=== PATIENT | female | born 2000 | race Caucasian/White ===

== ENCOUNTER 2022-04-02 08:47 | Emergency (ER) | payer OTHER, BC, SELFPAY ==
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
[2022-04-02 11:06] VITALS: BP 122/65; PULSE 63; RESP 18; TEMP 36.5; O2SAT 100
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
[2022-04-02] MEDS: ACETAMINOPHEN 500 MG TABLET 1000 MG PO (12:16)
[2022-04-02 14:34] VITALS: BP 127/76; PULSE 62; RESP 16; O2SAT 99
== END 2022-04-02 14:36 | disposition home or self-care (01) ==
PROVIDERS: Emergency Provider Physician Assistant
DX: S12.191A Other nondisplaced fracture of second cervical vertebra, initial encounter for closed fracture (principal); S12.391A Other nondisplaced fracture of fourth cervical vertebra, initial encounter for closed fracture; F17.290 Nicotine dependence, other tobacco product, uncomplicated; V49.50XA Passenger injured in collision with unspecified motor vehicles in traffic accident, initial encounter
CPT/HCPCS: 70450; 72125; 72128; 72131; 81025; 99284; A9270; L0140

== ENCOUNTER 2023-01-21 18:17 | Emergency (ER) | payer OTHER, SELFPAY ==
--- NOTE | 2023-01-21 18:33 | ED.WOUNDLAC ---
HPI - Wound/Laceration General Chief Complaint: Wound/Laceration Stated Complaint: Cut on left wrist Time Seen by Provider: 01/21/23 18:33 Source: patient Mode of arrival: ambulatory Limitations: no limitations History of Present Illness HPI narrative: Patient is a 22-year-old female that presents with laceration to left forearm. 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 Patient unsure of last tetanus shot. Denies any numbness, tingling weakness to hand. Denies any active bleeding. Related Data Allergies Allergy/AdvReac Type Severity Reaction Status Date / Time No Known Allergies Allergy Mild Verified 01/21/23 19:20 Review of Systems Review of Systems: All systems reviewed & are unremarkable except as noted in HPI and below Constitutional: Constitutional: Denies body ache(s), Denies chills, Denies fatigue, Denies fever(s), Denies headache(s), Denies malaise and Denies weakness Eyes: Eyes: Denies blurry vision, Denies irritation and Denies loss of vision ENT: Denies otalgia, Denies headache(s), Denies nasal discharge, Denies sinus pain and Denies sore throat Cardiovascular: Cardiovascular: Denies chest pain, Denies irregular heart rhythm and Denies dyspnea Respiratory: Respiratory: Denies dyspnea Gastrointestinal: Gastrointestinal: Denies abdominal pain, Denies melena, Denies hematochezia, Denies diarrhea, Denies nausea and Denies vomiting Musculoskeletal: Musculoskeletal: Denies back pain, Denies myalgias and Denies arthralgias Integumentary/Breasts: Skin/Breast: Denies pruritus, Denies rash and Reports wounds Neurologic: Denies headache(s), Denies loss of vision and Denies weakness Psychiatric: Psychiatric: Reports no additional psychiatric complaints Endocrine: Endocrine: Denies fatigue PMFSH Past Medical History Medical History History of chlamydia infection (~04/19/21) Social History Social History Smoking status: Current some day smoker Tobacco type: e-cigarettes/vaping Alcohol intake: current Alcohol use details: socially Substance use: never Current Housing: Decline to Answer Concerned About Future Housing: Decline to Answer Difficulty Paying Gas/Electric Bills: Decline to Answer Difficulty Paying for Meds: Decline to Answer Currently Unemployed: Decline to Answer Education: Decline to Answer Difficulty w/ Childcare or Family Care: Decline to Answer Living arrangements: with family Occupation/Education: occupation 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 There is no relevant family history pertinent to the presenting complaint. Exam Const: General: cooperative, healthy appearing, comfortable, no acute distress and well nourished Nutritional Appearance: well nourished Orientation/consciousness: patient oriented x3 Limitations: no limitations HENMT: Head: normal to inspection, normocephalic and atraumatic Ears: hearing grossly normal bilaterally and external ears normal Face/Nose/Sinus: Normal external nose present, normal facial exam and face symmetric Face and sinus: normal facial exam and face symmetric Mouth: Yes lip normal Eyes: General: appearance normal, both eyes and all related structures Alignment and Position: alignment normal and position normal Periorbital: periorbital findings normal Eyelids: eyelids normal Pupils: Equal, round and reactive pupils present EOM: EOMs intact bilaterally Neck: Neck: normal visual inspection, full ROM and supple Chest: Chest palpation & inspection: normal inspection of the chest Resp: Effort & Inspection: normal respiratory effor
[2023-01-21 19:21] VITALS: BP 127/66; PULSE 65; RESP 16; TEMP 36.4; O2SAT 100
[2023-01-21] MEDS: TETANUS,DIPHTHERIA,AC PERTUSSIS ADULT (0.5 ML) BOOSTRIX IM (20:02)
== END 2023-01-21 20:05 | disposition home or self-care (01) ==
PROVIDERS: Emergency Provider Nurse Practitioner Family
DX: S51.812A Laceration without foreign body of left forearm, initial encounter (principal); W45.8XXA Other foreign body or object entering through skin, initial encounter; Z23 Encounter for immunization; F17.290 Nicotine dependence, other tobacco product, uncomplicated
CPT/HCPCS: 12002; 90471; 90715; 99212; G0463

== ENCOUNTER 2023-11-12 21:56 | Emergency (ER) | payer OTHER, SELFPAY ==
[2023-11-12 21:57] VITALS: BP 156/94; PULSE 98; RESP 16; TEMP 36.8; O2SAT 100
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
== END 2023-11-12 22:52 | disposition home or self-care (01) ==
LOC: ANHED 22:46
PROVIDERS: Emergency Provider Emergency Medicine
DX: Z04.89 Encounter for examination and observation for other specified reasons (principal); F17.290 Nicotine dependence, other tobacco product, uncomplicated
CPT/HCPCS: 99281

== ENCOUNTER 2024-05-27 06:42 | Emergency (ER) | payer OTHER, SELFPAY ==
--- NOTE | ~2024-05-27 | XR_ITS ---
EXAMINATION: XR chest 2V 05/27/2024 07:47 INDICATION: Shortness of breath PROCEDURE: 2 view chest COMPARISON: No prior studies for comparison. FINDINGS: The lungs are clear. The cardiomediastinal silhouette is within normal limits. There are no pleural effusions. There is no pneumothorax suspected. IMPRESSION: 1: NO ACUTE CARDIOPULMONARY DISEASE. Reviewed, dictated and finalized at location [facility]. RVISOR DYER
[2024-05-27 07:21] VITALS: BP 94/85; PULSE 65; RESP 16; TEMP 36.6; O2SAT 100
[2024-05-27 07:31] VITALS: BP 106/56; PULSE 54; RESP 15; TEMP 36.4; O2SAT 100
--- NOTE | 2024-05-27 07:39 | ED.GENADULT ---
HPI - General Adult General Chief complaint: Shortness of Breath/Dyspnea Stated complaint: shortness of breath Time Seen by Provider: 05/27/24 07:05 History of Present Illness HPI narrative: 24-year-old female presented to the emergency department for evaluation for difficulty taking a deep breath for the last 2 weeks and then some right-sided chest pain that occurred over the last few days. Patient does take control. Patient denies any prior history of PE or DVT patient denies any prior history of cancer. Related Data Allergies Allergy/AdvReac Type Severity Reaction Status Date / Time No Known Allergies Allergy Mild Verified 02/19/24 15:50 Review of Systems Review of Systems: All systems reviewed & are unremarkable except as noted in HPI and below PMFSH Past Medical History Medical History History of chlamydia infection (~04/19/21) Social History Social History (Updated 02/19/24 @ 15:51 by Luis Antonio Espinoza MA) Smoking status: Current some day smoker Tobacco type: e-cigarettes/vaping Alcohol intake: current Alcohol use details: socially Substance use: never Substance use type: does not use Do You Feel Safe in your Home?: Yes Lack of Transportation: No Lack of Food: Never True Current Housing: I Have Housing Concerned About Future Housing: No Difficulty Paying Gas/Electric Bills: No Difficulty Paying for Meds: No Currently Unemployed: No Education: Associate Degree Difficulty w/ Childcare or Family Care: No Living arrangements: with family Occupation/Education: occupation 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 HEAD: normocephalic, atraumatic. EYES: PERRLA/EOMI, conjunctivae clear. NOSE: Normal no drainage EARS:TMS clear with good light reflex. THROAT: Pharynx clear, no exudate. NECK: Supple. No adenopathy, no masses. RESPIRATORY: Airway patent, respirations nonlabored. Clear to auscultation bilaterally, no rales, rhonchi, wheezing. CARDIOVASCULAR: Regular rate and rhythm without murmurs rubs or gallops. ABDOMINAL: Soft, nontender, nondistended, normal bowel sounds MUSCULOSKELETAL: Moves all extremities. Strength/ROM intact, No edema, No calf tenderness. NEURO: Alert. Cranial nerves II through XII intact. Grossly intact SKIN: Warm, dry. Normal Color Course Vital Signs Vital signs: Vital Signs Temperature 97.9 F 05/27/24 07:21 Pulse Rate 65 05/27/24 07:21 Respiratory Rate 16 05/27/24 07:21 Blood Pressure 94/85 L 05/27/24 07:21 Pulse Oximetry 100 05/27/24 07:21 Oxygen Delivery Room Air 05/27/24 07:21 Temperature 97.9 F 05/27/24 09:30 Pulse Rate 72 05/27/24 10:32 Respiratory Rate 16 05/27/24 10:32 Blood Pressure 106/60 05/27/24 09:30 Pulse Oximetry 99 05/27/24 09:30 Oxygen Delivery Room Air 05/27/24 07:24 Medical Decision Making MDM Narrative Medical decision making narrative: 24-year-old female presented to the emergency department for evaluation for right-sided chest pain after shortness of breath for the last week. Patient is afebrile. Patient's D-dimer is not elevated EKG shows sinus bradycardia with no evidence acute STEMI patient was negative for influenza RSV and for COVID and chest x-ray shows no acute cardiopulmonary abnormality. Differential Diagnosis Differential Diagnosis: COVID, RSV, influenza, pulmonary embolism, pneumonia, pneumothorax Vital Signs Vital Signs: Vital Signs Temperature 97.9 F 05/27/24 07:21 Pulse Rate 65 05/27/24 07:21 Respiratory Rate 16 05/27/24 07:21 Blood Pressure 94/85 L 05/27/24 07:21 Pulse Oximetry 100 05/27/24 07:21 Oxygen Delivery Room Air 05/27/24 07:21 Temperature 97.9 F 05/27/24 09:30 Pulse Rate 72 05/27/24 10:32 Respiratory Rate 16 05/27/24 10:32 Blood Pressure 106/60 05/27/24 09:30 Pulse Oximetry 99 05/27/24 09:30 Oxygen Delivery Room Air 05/27/24 07:24 Lab Data Lab results reviewed: Yes I reviewed the patient's lab results. Labs: Lab Results 05/27/24 05/27/24 Range/Units 07:33 07:54 D-Dimer < 0.27 (<0.48) ug/mL Influenza A (RT-PCR) Negative (Negative) Influenza B (RT-PCR) Negative (Negative) RSV (RT-PCR) Negative (Negative) SARS-CoV-2 RNA (RT-PCR) Negative (Negative) Imaging Data Radiologist's impression: Impressions Chest X-Ray 05/27/24 07:48 IMPRESSION: 1: NO ACUTE CARDIOPULMONARY DISEASE. Discharge Plan Discharge Clinical Impression: Shortness of breath Patient Disposition: Home, Self-Care Condition: Stable Instructions: Antibiotic Form, Chest Pain (DC), Pleurisy (DC) Additional Instructions: Scheduled ibuprofen for pain control. Have close follow-up with your primary care physician for additional outpatient cardiac testing. If you have any worsening symptoms then please call or return to the emergency department. Patient Language: Syriac Prescriptions: No Action norgestimate-ethinyl estradiol [Tri-Sprintec (28)] 0.18/0.215/0.25 mg-35 mcg (28) tablet 1 tablet PO DAILY Qty: 84 4RF Follow-up/Referrals: UNKNOWN,DOCTOR [Primary Care Provider] -
[2024-05-27 08:15] LABS: Influenza A QL RT-PCR Negative (Negative); Influenza B QL RT-PCR Negative (Negative); RSV RNA, RT-PCR Negative (Negative); SARS-CoV-2 RNA PCR Negative (Negative)
[2024-05-27 08:30] VITALS: BP 110/58; PULSE 52; RESP 20; TEMP 36.6; O2SAT 99
[2024-05-27 08:40] LABS: D Dimer < 0.27 ug/mL (<0.48)
[2024-05-27 09:00] VITALS: PULSE 50; RESP 18; O2SAT 99
[2024-05-27 09:30] VITALS: BP 106/60; PULSE 50; RESP 16; TEMP 36.6; O2SAT 99
[2024-05-27 10:32] VITALS: PULSE 72; RESP 16
--- OUTSIDE RECORDS SUMMARY | 2024-05-28 21:12 | XMS_ITS | Clinical Summary ---
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 Gender Identity Not on file Sexual Orientation Not on file Plan of Treatment Health Maintenance Due Date Last Done Comments Hepatitis C Virus (HCV) Screening 1999 Hepatitis B Immunization (1 of 3 - 19+ 3-dose series) 2018 Pap Smear 2020 Influenza Immunization (#1) 01/05/202402/03, 01/21/2013, 01/20/2011 SARS-COV-2 Immunization ( season) 2024 Respiratory Syncytial Virus (RSV) Immunization (Adult) (1 - 1-dose 75+ series) 2074 DTaP/Tdap/Td Immunization Discontinued 01/20/2011 TdaP Immunization Completed 01/20/2011 Human Papillomavirus (HPV) Immunization Completed 01/21/2013, 05/02/2012, 01/18/2012 Meningococcal Immunization (ACWY) Completed 01/17/2017, 01/20/2011 Pneumococcal Immunization Combined Aged Out No longer eligible based on patient's age to complete this topic Rotavirus Immunization Aged Out No lo nger eligible based on patient's age to complete this topic
== END 2024-05-27 10:25 | disposition home or self-care (01) ==
PROVIDERS: Emergency Provider Emergency Medicine
DX: R06.02 Shortness of breath (principal); Z20.822 Contact with and (suspected) exposure to COVID-19; F17.290 Nicotine dependence, other tobacco product, uncomplicated; Z79.3 Long term (current) use of hormonal contraceptives; R00.1 Bradycardia, unspecified; R94.31 Abnormal electrocardiogram [ECG] [EKG]; I45.2 Bifascicular block
CPT/HCPCS: 36415; 71046; 85380; 87637; 93005; 99283